=== PATIENT | male | born 1995 | race Caucasian/White ===

== ENCOUNTER 2018-12-17 07:27 | Inpatient (IN) | payer BC ==
[~2018-12-17] VITALS: Ht 185.4 cm; Wt 83.9 kg
--- NOTE | 2018-12-17 07:55 | NUR ---
PATIENT WAS SEEN BY DR AYALA. MOTHER AT BEDSIDE.
[2018-12-17] MEDS ORDERED: LORAZEPAM 1 MG TABLET ONE ×2 (08:20→09:42)
[2018-12-17] MEDS ORDERED: LORAZEPAM 0.5 MG TABLET PO ONE ×2 (08:30→09:45)
--- NOTE | 2018-12-17 10:44 | NUR ---
PATIENT AMBULATED TO BATHROOM WITH STEADY GAIT. URINE SENT TO LAB
[2018-12-17 10:49] LABS: *BILIRUBIN,URIN NEGATIVE (NEGATIVE); *BLOOD, URINE NEGATIVE (NEGATIVE); *COLOR,URINE LIGHT YELLOW (YELLOW); *KETONES,URINE NEGATIVE (NEGATIVE); *UROBILINOGEN,URINE 0.2 E.U./dl (NORMAL); LEUKOCYTE ESTERASE ,URINE NEGATIVE (NEGATIVE); NITRITE, URINE NEGATIVE (NEGATIVE); UGLUCOSE NEGATIVE (NEGATIVE)
[2018-12-17 11:00] LABS: *AMPHETAMINE, URINE NEGATIVE (NEGATIVE); *BARBITURATE, URINE NEGATIVE (NEGATIVE); *CANNABINOID, URINE POSITIVE (NEGATIVE); *CLARITY,URINE CLEAR (CLEAR); *COCCAINE, URINE NEGATIVE (NEGATIVE); *OPIATE, URINE NEGATIVE (NEGATIVE); *PHENCYCLIDINE SCREEN,URINE NEGATIVE (NEGATIVE)
[2018-12-17 11:01] LABS: BASOPHILS % (AUTO) 0.3 % (0.0-2.0); EOSINOPHILS % (AUTO) 0.3 % (0.0-7.0); HEMATOCRIT 47.4 % (36.7-47.1); LYMPHOCYTES # (AUTO) 1.7 K/uL (20.0-40.0); LYMPHOCYTES % (AUTO) 16.8 % (20.5-51.5); MEAN CORPUSCULAR HGB CONC 34 g/dL (32.5-36.3); MEAN CORPUSCULAR VOLUME 86.2 fL (73.0-96.2); MONOCYTES # (AUTO) 0.5 K/uL (2.0-10.0); MONOCYTES % (AUTO) 5.3 % (0.0-11.0); NEUTROPHILS # (AUTO) 7.8 K/uL (1.8-8.9); NEUTROPHILS % (AUTO) 77.3 % (38.5-71.5); PLATELET COUNT (AUTO) 220 K/uL (152-348); WHITE BLOOD COUNT (AUTO) 10.1 K/uL (3.6-10.2)
[2018-12-17 11:10] LABS: CARBON DIOXIDE 31 mmol/L (21-32); CHLORIDE 102 mmol/L (98-107); CREATININE 1.4 mg/dL (0.6-1.3); GLUCOSE 102 mg/dL (74-106); UREA NITROGEN, BLOOD 15 mg/dL (7-18)
[2018-12-17 11:11] LABS: ETHANOL < 3 MG/DL (0-0)
[2018-12-17 11:16] LABS: ALANINE AMINOTRANSFERASE 27 U/L (16-63); ALKALINE PHOSPHATASE 53 U/L (50-136); ASPARTATE AMINOTRANSFERASE 17 U/L (15-37); BILIRUBIN,DIRECT 0.1 mg/dL (0.0-0.2); BILIRUBIN,TOTAL 0.4 mg/dL (0.2-1.0); TOTAL PROTEIN, SERUM 7.7 g/dL (6.4-8.2)
--- NOTE | 2018-12-17 13:32 | NUR ---
PATIENT IS SLEEPING, AROUSES TO TOUCH, MOTHER AT BEDSIDE.
--- NOTE | 2018-12-17 15:05 | NUR ---
PATIENT AND MOTHER AWARE OF PENDING ADMISSION TO HOSPITAL. REPORT GIVEN TO [facility]
--- NOTE | 2018-12-17 16:00 | NUR ---
RECEIVED PATIENT FROM ER VIA GURNEY ADMITTED POSSIBLE CARDIOMYOPATHY, ALERT AND ORIENTED X3. ABLE TO MAKE NEEDS KNOWN. NO C/O PAIN AT THIS TIME. BELONGINGS ACCOUNTED AND SIGNED. NO IV , PATIENT STATED HE HAS PHOBIA OF THE NEEDLE. CONTINUE TO MONITOR. CALL LIGHT WITHIN REACH.
[2018-12-17] MEDS ORDERED: LORAZEPAM 2 MG/1 ML VIAL IV PRN (17:00)
[2018-12-17] MEDS ORDERED: ONDANSETRON 4 MG/2 ML VIAL IV PRN (18:30)
[2018-12-17] MEDS ORDERED: ZOLPIDEM 5 MG TABLET PO PRN (18:30)
[2018-12-17] MEDS ORDERED: ACETAMINOPHEN 325 MG TABLET PO PRN (18:30)
[2018-12-17] MEDS: LORAZEPAM 1 MG TABLET PO PRN (18:47)
--- NOTE | 2018-12-17 19:20 | NUR ---
RECEIVED PATIENT LYING IN BED. AAOX4. IN NO ACUTE DISTRESS. DENIES ANY PAIN OR SOB AT THIS TIME. NSR ON TELE AT 76/MIN. MOTHER AT BEDSIDE. NEEDS ASSESSED AND ATTENDED TO. SAFETY MEASURE INITIATED AND CALL [facility] WITHIN REACH.
[2018-12-17 20:00] VITALS: BP 139/84
[2018-12-18] VITALS: BP 122/77
[2018-12-18] MEDS: LORAZEPAM 1 MG TABLET PO PRN ×3 (00:59→13:53)
[2018-12-18 05:26] VITALS: BP 122/74
--- NOTE | 2018-12-18 06:21 | NUR ---
AAOX4. IN NO ACUTE DISTRESS. DENIES ANY PAIN OR SOB. NSR ON TELE AT 94/MIN. LORAZEPAM 1MG PO PRN GIVEN FOR ANXIETY. NEEDS ASSESSED AND ATTENDED TO. SAFETY MEASURE MAINTAINED AND CALL [facility] WITHIN REACH.
[2018-12-18] MEDS ORDERED: PANTOPRAZOLE SODIUM 40 MG TABLET.DR PO SCH (07:00)
--- NOTE | 2018-12-18 08:00 | NUR ---
PT RESTING COMFORTABLY IN BED. NO ACUTE DISTRESS NOTED. NO SOB NOTED. PT DENIES PAIN AT HIS TIME. BED LOCKED AND IN LOW POSITION SAFETY MEASURES IMPLEMENTED. CALL LIGHT WITHIN REACH. RELATIVE AT BEDSIDE. TELE MONITOR SINUS RHYTHM. WILL CONTINUE TO MONITOR.
[2018-12-18 08:37] LABS: BASOPHILS % (AUTO) 0.5 % (0.0-2.0); EOSINOPHILS % (AUTO) 0.6 % (0.0-7.0); HEMOGLOBIN 16.7 g/dL (12.5-16.3); LYMPHOCYTES # (AUTO) 2.6 K/uL (20.0-40.0); LYMPHOCYTES % (AUTO) 37.3 % (20.5-51.5); MEAN CORPUSCULAR HEMOGLOBIN 29.6 uug (23.8-33.4); MEAN CORPUSCULAR HGB CONC 33 g/dL (32.5-36.3); MEAN CORPUSCULAR VOLUME 88.8 fL (73.0-96.2); MONOCYTES # (AUTO) 0.6 K/uL (2.0-10.0); MONOCYTES % (AUTO) 8.8 % (0.0-11.0); NEUTROPHILS # (AUTO) 3.8 K/uL (1.8-8.9); NEUTROPHILS % (AUTO) 52.8 % (38.5-71.5); PLATELET COUNT (AUTO) 206 K/uL (152-348); RED BLOOD CELL COUNT(AUTO) 5.63 MIL/uL (4.06-5.63)
[2018-12-18 08:43] LABS: WHITE BLOOD COUNT (AUTO) 7.1 K/uL (3.6-10.2)
[2018-12-18 08:49] LABS: BILIRUBIN,TOTAL 0.5 mg/dL (0.2-1.0); CREATININE 1.5 mg/dL (0.6-1.3); MAGNESIUM 2.3 mg/dL (1.8-2.4); PHOSPHOROUS 3.9 mg/dL (2.5-4.9); POTASSIUM 3.9 mmol/L (3.5-5.1); TOTAL PROTEIN, SERUM 8.1 g/dL (6.4-8.2)
[2018-12-18] MEDS ORDERED: GABA-534 PO (09:48)
[2018-12-18 11:20] VITALS: BP 112/59
--- NOTE | 2018-12-18 12:25 | NUR ---
PT RESTING COMFORTABLY IN BED. NO ACUTE DISTRESS NOTED. NO SOB NOTED. PT DENIES PAIN AT HIS TIME. PT DENIES SUICIDAL IDEATION AND/OR INTENT AT THIS TIME CHARGE NURSE AND ASSIGNED RN PRESENT AT TIME OF PATIENT'S STATEMENT. LIST OF HOME MEDS ENTER IN RECONCILIATION FORM. BED LOCKED AND IN LOW POSITION SAFETY MEASURES IMPLEMENTED. CALL LIGHT WITHIN REACH. RELATIVE AT BEDSIDE. TELE MONITOR SINUS RHYTHM. WILL CONTINUE TO MONITOR. Addendum: 12/18/18 at 1342 by CHAITANYA FLOYD RN PATIENT'S BROTHER MENTIONED THAT THE PATIENT HAD SUICIDAL IDEATION. RN AND CHARGE NURSE QUESTIONED PT AT THIS TIME. PT DENIED SUICIDAL IDEATION.
--- NOTE | 2018-12-18 12:45 | NUR ---
Asked to go to room because patient's brother told CHAITANYA FLOYD RN that patient verbalized suicidal ideation. Entered the room. Patient awake and alert. Asked brother to step outside for privacy.
--- NOTE | 2018-12-18 13:19 | NUR ---
PT CALLED RN AND AUTO DRIVER INTO HIS ROOM, IN ORDER TO VOICE HIS CONCERNS REGARDING THE WAY HE WAS AWAKEN AT THE TIME OF SUICIDAL INTENT OR IDEATION QUESTIONING. PT ALLEGES THAT RN AND CHARGE NURSE ABRUPTLY AWAKEN THE PT AND INTERROGATED HIM REGARDING SUICIDAL INTENT OR IDEATION TO WHICH PT STATED CREATED MAJOR ANXIETY. STAFF APOLOGIZED TO PATIENT REGARDING HIS EXPERIENCE AND PERCEPTION ON THE MATTER. EXPLAINED TO THE PATIENT THAT STAFF PROCEEDED ACCORDINGLY PT SEEMED COOPERATIVE AND ALERT AT THE MOMENT OF QUESTIONING THE PATIENT REGARDING SUICIDAL IDEATION, OTHERWISE STAFF WOULD HAVE WAITED IN ORDER TO ASK SUCH IMPORTANT QUESTION, AND OBTAIN SUCH IMPORTANT ANSWER. STAFF REASSURED THE PATIENT THAT WE WILL TAKE MEASURES AND ADDRESS HIS CONCERNS REGARDING THE "ABRUPT' WAY THE PATIENT WAS AWAKEN IN ORDER TO OBTAIN THIS INFORMATION, AND WILL ADDRESS HIS CONCERNS WITH STAFF IN ORDER TO BETTER THIS APPROACH. CONTACTED.
--- NOTE | 2018-12-18 13:58 | NUR ---
PT STATED FEELING VERY ANXIOUS. LET PT KNOW AVAILABLE MEDS AND EXPLAINED EFFECTS AND SIDE EFFECTS. ATIVAN GIVEN PRN ORDER.
[2018-12-18 15:18] VITALS: BP 135/78
--- NOTE | 2018-12-18 18:00 | NUR ---
PT SLEEPING IN BED. MOTHER AT THE BEDSIDE. NO ACUTE DISTRESS OR SOB NOTED. BED LOCKED AND IN LOW POSITION. CALL LIGHT WITHIN REACH. BASED ON ECHO RESULTS DR PRYOR ASKED IF PT WISHES TO GO HOME TONIGHT. PT AWAKEN BY MOTHER. PT STATES HE WILL LET US KNOW ABOUT HIS DECISION AFTER HE AWAKENS A BIT MORE HE STILL FEELS SLEEPY. NOTIFIED.
--- NOTE | 2018-12-18 18:35 | NUR ---
PT HAS DECIDED TO GO HOME TONIGHT. DR PRYOR NOTIFIED. AWAITING DISCHARGE ORDERS.
--- NOTE | 2018-12-18 19:00 | NUR ---
PATIENT ALERT ORIENTED, MOTHER AT BEDSIDE. PATIENT CALM AND RELAX, CONT TO MONITOR.
[2018-12-18 20:00] VITALS: BP 137/77
--- NOTE | 2018-12-18 20:29 | NUR ---
PATIENT DISCHARGE HOME ACCOMPANIED BY MOTHER. INSTRUCTIONS GIVEN AND PRESCRIPTION MEDICATION GIVEN TO MOTHER. TAKEN ALL BELONGINGS.
== END 2018-12-18 20:34 | disposition home or self-care (01) | DRG 391 ==
LOC: ER 07:27 → TELE3 15:36
PROVIDERS: ADMIT Internal Medicine; ATTEND Internal Medicine
DX: K21.0 Gastro-esophageal reflux disease with esophagitis (principal); N17.0 Acute kidney failure with tubular necrosis; F41.9 Anxiety disorder, unspecified; Z82.49 Family history of ischemic heart disease and other diseases of the circulatory system; F32.9 Major depressive disorder, single episode, unspecified; F12.90 Cannabis use, unspecified, uncomplicated; E78.5 Hyperlipidemia, unspecified
CPT/HCPCS: 36415; 70030-TC; 70450; 71045; 80307; 82747; 83735; 84100; 84443; 85014; 85025; 93005; 93307; A4663; G0378; G0480